=== PATIENT | female | born 1950 | race Asian ===

== ENCOUNTER 2019-03-13 14:21 | Emergency (ER) | payer MEDICARE ==
[~2019-03-13] VITALS: Ht 157.5 cm; Wt 54.4 kg
[~2019-03-13 14:21] MED LIST: CYCL10 PO; DIPH50 PO; OXYACE5T PO; PERM5TC TOP
[2019-03-13 15:01] LABS: BASOPHILS ABSOLUTE AUTO 0.07 K/mm3 (0.00-0.23); BASOPHILS PERCENT AUTO 1 % (0-2); EOSINOPHILS PERCENT AUTO 12 % (0-6); Hemoglobin 13.7 g/dL (11.5-16.0); IMMATURE GRAN ABSOLUTE AUTO 0.01 K/mm3 (0.00-0.10); IMMATURE GRAN PERCENT AUTO 0 % (0-1); LYMPHOCYTES ABSOLUTE AUTO 0.91 K/mm3 (0.84-5.20); LYMPHOCYTES PERCENT AUTO 16 % (21-46); MONOCYTES ABSOLUTE AUTO 0.43 K/mm3 (0.16-1.47); MONOCYTES PERCENT AUTO 7 % (4-13); Mean Corpuscular HGB 30.2 pg (26.0-34.0); Mean Corpuscular HGB Conc 33.4 g/dL (31.5-36.5); Mean Corpuscular Volume 91 fL (80-100); Mean Platelet Volume 11.3 fL (9.1-12.4); NEUTROPHILS ABSOLUTE AUTO 3.68 K/mm3 (1.96-9.15); NEUTROPHILS PERCENT AUTO 63 % (41-73); Platelet Count 177 K/mm3 (150-400); RDW Coefficient Variation 12.1 % (11.7-14.2); RDW Standard Deviation 40.1 fL (35.1-46.3); Red Blood Cell Count 4.53 M/mm3 (3.80-5.20)
[2019-03-13 15:18] LABS: Alanine Aminotransfer (ALT/SGP 17 U/L (12-78); Albumin, Blood 3.8 g/dL (3.4-5.0); Albumin/Globulin Ratio 0.9 (0.8-1.8); Alk Phos 83 U/L (50-136); Anion Gap 4 mmol/L (6-16); Aspartate Aminotrans (AST/SGOT 16 U/L (12-37); Bilirubin, Total 0.6 mg/dL (0.1-1.0); Blood Urea Nitrogen 11 mg/dL (8-24); CO2, Blood 29 mmol/L (21-32); Calcium, Blood 8.5 mg/dL (8.5-10.1); Chloride, Blood 109 mmol/L (98-108); Creatinine, Blood 0.65 mg/dL (0.40-1.00); Globulin, Blood 4.4 g/dL (2.2-4.0); Glomerular Filtration Rate >60 (60-); Glucose, Blood 108 mg/dL (70-99); Potassium, Blood 3.3 mmol/L (3.5-5.5); Sodium, Blood 142 mmol/L (136-145); Total Protein, Blood 8.2 g/dL (6.4-8.2)
[2019-03-13] MEDS ORDERED: Prednisone20 MG PO (15:54)
[2019-03-13] MEDS ORDERED: BENZ100A PO (15:54)
== END 2019-03-13 16:28 | disposition home or self-care (01) ==
LOC: ER 14:21
PROVIDERS: Physician Assistant
DX: J45.901 Unspecified asthma with (acute) exacerbation (principal); J06.9 Acute upper respiratory infection, unspecified
CPT/HCPCS: 36415; 71046; 80053; 84484; 85025; 93005; 93010; 94640; 96374; 99284-25; J2930

== ENCOUNTER 2020-12-04 06:06 | Day surgery (SDC) | payer MEDICARE, OTHER ==
[~2020-12-04] VITALS: Ht 157.5 cm; Wt 52.3 kg
[~2020-12-04 06:06] MED LIST changes: +BENZ100A PO; +Prednisone20 MG PO
[2020-12-04] MEDS ORDERED: AMLO10 PO (06:30)
[2020-12-04] MEDS ORDERED: ALEN10 PO (06:31)
--- NOTE | 2020-12-04 09:33 | NUR ---
Patient up to Ambulate independently. Gait steady. Benjamin Paws warming gown applied.Lungs clear T/O to Auscultation. Patient States Post-Procedure ride home has been arranged Discharge instructions reviewed with patient. Patient verbalizes understanding. Copy given to patient to take home. Discharged via wheelchair to private car for ride home.
== END 2020-12-04 10:06 | disposition home or self-care (01) ==
LOC: ORSCMMR 06:06 → ORD 07:30 → ORSCMMR 07:30
PROVIDERS: Obstetrics & Gynecology
PROC: 0UT74ZZ Resection of Bilateral Fallopian Tubes, Percutaneous Endoscopic Approach (ICD-10-PCS; principal; 2020-12-04 07:30)
PROC: 0UT24ZZ Resection of Bilateral Ovaries, Percutaneous Endoscopic Approach (ICD-10-PCS; principal; 2020-12-04 07:30)
DX: D27.0 Benign neoplasm of right ovary (principal); N83.8 Other noninflammatory disorders of ovary, fallopian tube and broad ligament; Z79.899 Other long term (current) drug therapy
CPT/HCPCS: 36415; 86850; 86900; 86901; 88108; 88305; A9270; J0171; J1100; J2250; J2405; J2704; J3010; J7120

== ENCOUNTER → 2022-06-12 | Outpatient (CLI) | payer MEDICARE, OTHER ==
[~2022-06-12] MED LIST changes: +ALEN10 PO; +AMLO10 PO
[2022-06-12 14:18] LABS: BASOPHILS ABSOLUTE AUTO 0.07 K/mm3 (0.00-0.23); BASOPHILS PERCENT AUTO 1 % (0-2); EOSINOPHILS ABSOLUTE AUTO 0.45 K/mm3 (0.00-0.68); EOSINOPHILS PERCENT AUTO 6 % (0-6); Hematocrit 42.9 % (33.0-51.0); IMMATURE GRAN ABSOLUTE AUTO 0.04 K/mm3 (0.00-0.10); IMMATURE GRAN PERCENT AUTO 1 % (0-1); LYMPHOCYTES ABSOLUTE AUTO 1.68 K/mm3 (0.84-5.20); LYMPHOCYTES PERCENT AUTO 21 % (21-46); MONOCYTES ABSOLUTE AUTO 0.79 K/mm3 (0.16-1.47); MONOCYTES PERCENT AUTO 10 % (4-13); Mean Corpuscular HGB 30.1 pg (26.0-34.0); Mean Corpuscular Volume 86 fL (80-100); Mean Platelet Volume 10.1 fL (9.1-12.4); NEUTROPHILS ABSOLUTE AUTO 5.14 K/mm3 (1.96-9.15); NEUTROPHILS PERCENT AUTO 63 % (41-73); Platelet Count 220 K/mm3 (150-400); RDW Coefficient Variation 12.4 % (11.7-14.2); RDW Standard Deviation 38.6 fL (35.1-46.3); Red Blood Cell Count 4.98 M/mm3 (3.80-5.20); White Blood Cell Count 8.17 K/mm3 (4.00-11.30)
[2022-06-12 14:32] LABS: Albumin, Blood 3.6 g/dL (3.4-5.0); Albumin/Globulin Ratio 0.9 (0.8-1.8); Bilirubin, Total 0.7 mg/dL (0.1-1.0); Calcium, Blood 8.8 mg/dL (8.5-10.1); Creatinine, Blood 0.72 mg/dL (0.40-1.00); Globulin, Blood 4.2 g/dL (2.2-4.0); Potassium, Blood 3.7 mmol/L (3.5-5.5); Total Protein, Blood 7.8 g/dL (6.4-8.2)
== END | disposition home or self-care (01) ==
LOC: LAB 14:13 → LAB SHORT 14:13
PROVIDERS: Physician Assistant
DX: R07.9 Chest pain, unspecified (principal); R00.2 Palpitations; R53.83 Other fatigue
CPT/HCPCS: 80053; 82150; 84443; 84484; 85025

== ENCOUNTER → 2025-04-20 | Outpatient (CLI) | payer MEDICARE, OTHER ==
[2025-04-20 16:03] LABS: Alanine Aminotransfer (ALT/SGP 31 U/L (12-78); Albumin, Blood 3.8 g/dL (3.4-5.0); Albumin/Globulin Ratio 1.0 (0.8-1.8); Anion Gap 6 mmol/L (3-11); Aspartate Aminotrans (AST/SGOT 24 U/L (12-37); Bilirubin, Total 0.9 mg/dL (0.1-1.0); Blood Urea Nitrogen 15 mg/dL (8-24); CHOL/HDL RATIO 1.9; CO2, Blood 29 mmol/L (21-32); Calcium, Blood 9.1 mg/dL (8.5-10.1); Chloride, Blood 107 mmol/L (98-108); Cholesterol 124 mg/dL (50-200); Creatinine, Blood 0.75 mg/dL (0.40-1.00); Globulin, Blood 3.7 g/dL (2.2-4.0); Glucose, Blood 89 mg/dL (70-99); HDL Cholesterol 64 mg/dL (>39); LDL/HDL RATIO 0.8; Low Density Lipoprotein Chol 50 mg/dL (0-110); Potassium, Blood 3.5 mmol/L (3.5-5.5); Sodium, Blood 138 mmol/L (136-145); Total Protein, Blood 7.5 g/dL (6.4-8.2); Triglycerides 51 mg/dL (30-160); Very Low Density Lipoprot Chol 10 mg/dL (6-32)
== END | disposition home or self-care (01) ==
LOC: LAB 11:44 → LAB SHORT 11:44
DX: Z13.1 Encounter for screening for diabetes mellitus (principal); I10 Essential (primary) hypertension; E78.5 Hyperlipidemia, unspecified
CPT/HCPCS: 80053; 80061; 83036